=== PATIENT | female | born 1960 | race Caucasian/White ===

== ENCOUNTER 2017-07-16 13:35 | Emergency (ER) | payer OTHER ==
[~2017-07-16] VITALS: Ht 167.6 cm; Wt 86.2 kg
--- NOTE | ~2017-07-16 | US98 ---
[facility] A Service of [facility] & [facility] / [facility] RADIOLOGY TEXT RESULTS PATIENT: CHELO VERGARA LOCATION: [facility] : 58 UNIT #: [id number] AGE: [address]: Diaz Farmer MD SEX: F ORDER DR: [id number] [facility] [address] [place], [place] [address] [id number] E MR#: [id number] Acc #: [id number] NAME: CHELO VERGARA. : 1960 SEX: F STUDY DATE/TIME: 07/16/2017 16:49 UNIT: [facility] ROOM: STUDY DESCRIPTION: US Pelvic Non-OB Complete Attending Physician: Diaz Farmer M.D. Ordering Physician: Nish Aldana M.D. MEDICAL IMAGING REPORT This report is preliminary unless electronic signature is present EXAM Pelvic non-OB ultrasound, 07/16/2017 HISTORY 57-year-old female with right-sided pelvic pain for 2 years. Pain increased today. No history of prior pelvic surgery. Post menopausal for eight years. COMPAR[address] abdomen and pelvis, 07/16/2017 FINDINGS Transabdominal and transvaginal scanning of the pelvis was performed. Uterus is normal in size and echogenicity. Endometrial echo complex is within normal limits, measuring 4.0-5.0 mm in thickness. There is a multiseptated cystic structure in the right adnexa, measuring 8.5 x 11.2 x 8.6 cm. No significant internal vascular flow. There is also a multiseptated cystic structure in the left adnexa measuring 6.1 x 5.0 x 7.1 cm in size. No significant internal vascular flow. No significant free pelvic fluid. IMPRESSION Large bilateral multiseptated cystic structures in the bilateral adnexa, likely representing complex ovarian cysts. Given the size of these cysts, surgical consultation is recommended as malignancy in a postmenopausal patient is not completely excluded. Dictated by... Schuyler Andrade M.D. THIS IS AN ELECTRONICALLY VERIFIED REPORT Schuyler Andrade M.D. at 07/18/2017 10:47 AM [email or web address] [facility] A Service of [facility] & [facility] / [facility] RADIOLOGY TEXT RESULTS PATIENT: CHELO VERGARA LOCATION: [facility] : 58 UNIT #: [id number] AGE: [address]: Daiz Farmer MD SEX: F ORDER DR: TD: 07/17/2017 18:12 JOB #: [id number] MEDICAL IMAGING REPORT Page 1 of 1 COPY
--- NOTE | ~2017-07-16 | CT4 ---
[facility] A Service of [facility] RADIOLOGY TEXT RESULTS PATIENT: CHELO VERGARA LOCATION: [facility] : 58 UNIT #: [id number] AGE: [address]: Diaz Farmer MD SEX: F ORDER DR: [id number] [place] [id number] [facility] [place], [place] [address] [id number] E MR#: [id number] Acc #: [id number] NAME: CHELO VERGARA : 1960 SEX: F STUDY DATE/TIME: 07/16/2017 15:00 UNIT: [facility] ROOM: STUDY DESCRIPTION: CT Abd and Pelv Wo Cont Attending Physician: Diaz Farmer M.D. Ordering Physician: Nish Aldana M.D. MEDICAL IMAGING REPORT This report is preliminary unless electronic signature is present EXAM CT abdomen and pelvis without contrast, 07/16/2017 HISTORY 57-year-old female with right flank pain beginning today. COMPARISON None TECHNIQUE Helical scan performed through the abdomen and pelvis without oral or IV contrast. Coronal and sagittal reformatted images. This CT exam was performed with one or more of the following radiation dose reduction techniques: automatic exposure control, adjustment of mA and/or kV according to patient size, and iterative reconstruction. FINDINGS Visualized lung bases are unremarkable. Diffuse fatty infiltration of the liver. Mild hepatomegaly. The spleen, pancreas, gallbladder, both adrenal glands, and both kidneys are within normal limits. No urinary tract stones or hydronephrosis. Abdominal aorta is normal in course and caliber with scattered atherosclerotic calcification. Small bowel is unremarkable without obstruction. Appendix is normal. Colon unremarkable. Uncomplicated sigmoid colonic diverticulosis. No free fluid or free air. The urinary bladder and uterus are within normal limits. There are large, multilobulated and septated cystic structures in the bilateral adnexa, right greater than left. Structure measures at least 8.9 x 8.9 cm on the right and 6.8 x 5.3 cm on the left. These could represent complex ovarian cysts. Cystic ovarian neoplasms are not excluded. Followup with [facility] A Service of [facility] RADIOLOGY TEXT RESULTS PATIENT: CHELO VERGARA LOCATION: [facility] : 58 UNIT #: [id number] AGE: [address]: Diaz Farmer MD SEX: F ORDER DR: non-emergent pelvic ultrasound and ENVIRONMENTAL SYSTEMS COORDINATOR consultation recommended. No free pelvic fluid. No acute bony abnormality. IMPRESSION 1. Hepatic steatosis with mild hepatomegaly. 2. Negative for urinary tract stones or hydronephrosis. 3. Normal appendix. 4. Large multilobulated and septated cystic masses in the bilateral adnexa, likely ovarian in origin. These may represent complex ovarian cysts, but cystic ovarian neoplasms are not excluded. This measures 8.9 x 8.9 cm on the right and 6.8 x 5.3 cm on the left. Followup with non-emergent pelvic ultrasound and ENVIRONMENTAL SYSTEMS COORDINATOR consultation is recommended. Dictated by... Schuyler Andrade M.D. THIS IS AN ELECTRONICALLY VERIFIED REPORT Schuyler Andrade M.D. at 07/18/2017 10:48 AM Fide TD: 07/17/2017 16:36 JOB #: [id number] MEDICAL IMAGING REPORT Page 1 of 1 COPY
[2017-07-16 14:27] LABS: URINE SOURCE CLEAN CATCH
[2017-07-16 14:36] LABS: URINE APPEARANCE CLEAR; URINE BILIRUBIN NEG (NEG); URINE BLOOD NEG (NEG); URINE COLOR YELLOW; URINE GLUCOSE NEG (NEG); URINE KETONE NEG (NEG); URINE LEUKOCYTE ESTERASE TRACE (NEG); URINE NITRATE NEG (NEG); URINE PROTEIN NEG (NEG); URINE SPECIFIC GRAVITY 1.018 (1.003-1.035); URINE UROBILINOGEN 0.2 MG/DL (NEG)
[2017-07-16 14:37] LABS: URINE BACTERIA AUWI NEG (NEGATIVE); URINE SQUAMOUS EPITHELIAL CELL NONE SEEN /[HPF]
[2017-07-16 14:41] LABS: BASOPHIL# 0.1 X10e3 (0-0.3); BASOPHIL% 0.8 % (0-2.5); EOSINOPHIL# 0.1 X10e3 (0-0.7); EOSINOPHIL% 1.2 % (0.0-7.0); HEMATOCRIT 40.4 % (35.0-45.0); LYMPHOCYTE# 1.5 X10e3 (1.0-3.5); LYMPHOCYTE% 19.4 % (17.0-45.0); MEAN CELL VOLUME 81.2 FL (83-96); MEAN CORPUSCULAR HEMOGLOBIN 28.1 PG (28-34); MEAN CORPUSCULAR HGB CONC 34.6 g/dL (30-36); MEAN PLATELET VOLUME 7.6 FL (6.5-11.5); MONOCYTE# 0.4 X10e3 (0-1.0); MONOCYTE% 5.6 % (3.0-12.0); NEUTROPHIL# 5.7 X10e3 (1.5-7.1); PLATELET COUNT 256 X10e3 (140-420); RED BLOOD COUNT 4.97 X10e (3.90-5.30); RED CELL DISTRIBUTION WIDTH 12.7 % (11.0-15.5); WHITE BLOOD COUNT 7.8 X10e3 (4.0-10.5)
[2017-07-16 14:53] LABS: CULTURE INDICATED? NO
[2017-07-16 14:53] LABS: DIFF IND NO
[2017-07-16 15:20] LABS: BUN/CREATININE RATIO 22.85; CALCIUM SERUM 10.3 mg/dL (8.4-10.2); CREATININE SERUM 0.7 mg/dL (0.6-1.4); GLOM FILT RATE Estimated 95.5 mL/min (>60); POTASSIUM 3.9 mmol/L (3.5-5.1)
== END 2017-07-16 19:29 | disposition home or self-care (01) ==
LOC: CED 13:35
PROVIDERS: Emergency Medicine
DX: N83.209 Unspecified ovarian cyst, unspecified side (principal); E11.9 Type 2 diabetes mellitus without complications; I10 Essential (primary) hypertension
CPT/HCPCS: 36415; 74176; 76830; 76856; 80048; 81003; 85025; 96361; 96374; 96375; 96376; 99284; J1885; J2270; J2405